=== PATIENT | male | born 1955 | race Caucasian/White ===

== ENCOUNTER 2018-01-18 10:19 | Outpatient (CLI) | payer BC, OTHER | END 2018-01-18 10:20 | disposition home or self-care (01) | LOC: LAB.R 10:19 | PROVIDERS: ATTEND Registered Nurse | DX: J02.8 Acute pharyngitis due to other specified organisms (principal) | CPT/HCPCS: 87070 ==

== ENCOUNTER 2021-01-14 08:16 | Outpatient (CLI) | payer MEDICARE, OTHER | END 2021-01-14 08:17 | disposition critical access hospital (66) | LOC: EMS 08:16 | DX: R42 Dizziness and giddiness (principal); R53.1 Weakness; R11.2 Nausea with vomiting, unspecified | CPT/HCPCS: A0425; A0427 ==

== ENCOUNTER 2021-01-14 08:48 | Emergency (ER) | payer MEDICARE, OTHER ==
[2021-01-14] MEDS ORDERED: SODIUM CHLORIDE 0.9% 1,000 ML IV STA (09:10)
[2021-01-14] MEDS ORDERED: ONDANSETRON 4 MG/2 ML VIAL IVP STA (09:10)
[2021-01-14] MEDS ORDERED: diazePAM INJ 5 MG/ML SYRINGE IVP STA (09:30)
--- NOTE | 2021-01-14 09:33 | ED Physician Documentation ---
History of Present Illness - Stated complaint Stated Complaint: DIZZINESS - Chief complaint Chief Complaint: Neuro - History obtained from History obtained from: Patient, EMS - Additonal information Additional information: Patient comes emergency department chief complaint of vertigo and nausea that started last night. Patient states he was just sitting in his chair in his office, reading, when the symptoms started. He states that his office chair rocks and he thought that perhaps he just rock too much, but the symptoms persisted. Patient denies any other focal neurologic symptoms or deficits along with the vertigo. He states that he began immediately to feel severely nauseated when the vertigo came on and vomited a number of times. He denies ever having had vertigo before. He denies any recent viral illness. No head injury. The patient states that the only other neurologic history he has his cluster headaches every couple of years. He is not currently having a headache. Patient does note that he has a sense of "white noise" in his right ear that started around the same time as the vertigo. No hearing loss. The patient also states that even though the vertigo causes him to feel off balance when he is up, if he is laying down, he feels he has good coordination in all 4 extremities. He states that moving makes the symptoms significantly worse, though he has an abiding sense of vertigo and nausea. No other complaints at this time. Review of Systems Ten Systems: 10 systems reviewed and negative Constitutional: reports: Reviewed and negative Eyes: reports: Reviewed and negative Ears: reports: Reviewed and negative Nose: reports: Reviewed and negative Throat: reports: Reviewed and negative Cardiac: reports: Reviewed and negative Respiratory: reports: Reviewed and negative GI: reports: Nausea, Vomiting : reports: Reviewed and negative Skin: reports: Reviewed and negative Musculoskeletal: reports: Reviewed and negative Neurologic: reports: Other (Vertigo) Psychiatric: reports: Reviewed and negative Endocrine: reports: Reviewed and negative Immunocompromised: reports: Reviewed and negative PD PAST MEDICAL HISTORY - Present Medications Home Medications: Ambulatory Orders Medication Instructions Recorded Confirmed Meclizine HCl [Motion Sickness] 25 mg PO Q6HR PRN #30 tablet 01/14/21 Ondansetron Odt [Zofran] 4 mg TL Q6H PRN #10 tablet 01/14/21 - Allergies Allergies/Adverse Reactions: Allergies Allergy/AdvReac Type Severity Reaction Status Date / Time No Known Drug Allergies Allergy Verified 01/14/21 08:58 PD ED PE NORMAL - Vitals Vital signs reviewed: Yes - General General: Alert and oriented X 3, Well developed/nourished, Other (Patient appears generally uncomfortable, laying curled up on his side with a vomit bag at his mouth. Is otherwise in no distress, however.) - HEENT HEENT: Atraumatic, PERRL, EOMI, Ears normal, Moist mucous membranes - Neck Neck: Supple, no meningeal sign - Cardiac Cardiac: RRR, No murmur, Strong equal pulses - Respiratory Respiratory: No respiratory distress, Clear bilaterally - Abdomen Abdomen: Soft, Non tender, Non distended - Derm Derm: Normal color, Warm and dry, No rash - Extremities Extremities: No deformity, No edema, No calf tenderness / cord - Neuro Neuro: Alert and oriented X 3, stone polisher 2-12 intact, No motor deficit, No sensory deficit, Normal speech, Other (Patient is able to turn over briskly in bed and with good coordination, but does note that this makes his sense of nausea and vertigo worse.) - Psych Psych: Normal mood, Normal affect Results - Vitals Vitals: Oxygen O2 Source Room air - EKG (time done) 0940 Rate: Rate (enter#) (67) Rhythm: NSR [place]: Normal Intervals: Normal [place] QRS: Normal Ischemia: Normal ST segments Compare to prior EKG: Old EKG unavailable Computer interpretation: Agree with computer - Labs Labs: Laboratory Tests 01/14/21 01/14/21 09:33 09:33 WBC 10.2 RBC 4.92 Hgb 15.1 Hct 45.5 MCV 92.5 MCH 30.7 MCHC 33.2 RDW 12.5 Plt Count 198 MPV 10.5 Neut # (Auto) 8.3 H Lymph # (Auto) 1.0 L Kenton # (Auto) 0.8 Eos # (Auto) 0.0 Baso # (Auto) 0.1 Absolute Nucleated RBC 0.00 Nucleated RBC % 0.0 Sodium 137 Potassium 4.0 Chloride 102 Carbon Dioxide 24 Anion Gap 11.0 BUN 18 Creatinine 1.0 Estimated GFR (MDRD) 75 L Glucose 120 H Calcium 9.7 Total Bilirubin 0.9 AST 33 ALT 30 Alkaline Phosphatase 62 Total Protein 7.4 Albumin 4.6 Globulin 2.8 Albumin/Globulin Ratio 1.6 Lipase 26 - Rads (name of study) CT head Radiology: Final report received, EMP read indepedently, See rad report (neg) PD MEDICAL DECISION MAKING - ED course Complexity details: reviewed results, re-evaluated patient, considered differential, d/w patient ED course: The patient was treated symptomatically with IV fluids, Zofran, and Valium, and worked up with laboratory studies, EKG, and head CT. Work-up was negative. Pt was feeling a little better, but still dizzy. He was able to hold down a dose of meclizine, and after this, could ambulate to the bathroom without assistance, though he did still have some vertigo. I suspected benign positional vertigo, and have discussed the potential causes, timeline, and need for follow-up. I have prescribed meclizine and zofran. We have discussed the usual indications for return. Departure - Departure Disposition: 01 Home, Self Care Clinical Impression: Benign positional vertigo Qualifiers: Laterality: unspecified laterality Qualified Code(s): H81.10 - Benign paroxysmal vertigo, unspecified ear Condition: Stable Instructions: ED BPV Vertigo Prescriptions: Meclizine HCl [Motion Sickness] 25 mg PO Q6HR PRN #30 tablet PRN Reason: Vertigo Ondansetron Odt [Zofran] 4 mg TL Q6H PRN #10 tablet PRN Reason: Nausea / Vomiting Comments: Your labs and CT scan look good, as does your EKG. Your vertigo is most consistent with a peripheral source, rather than a problem inside your brain. Peripheral vertigo will resolve on its own, but can take some time. Please take the nausea and vertigo medication as needed, and schedule an appointment as soon as possible follow-up with your primary care physician. Discharge Date/Time: 01/14/21 13:46
[2021-01-14 09:39] LABS: BASOPHILS # (AUTO) 0.1 10^3/uL (0.0-0.1); BASOPHILS % (AUTO) 0.5 %; EOSINOPHILS % (AUTO) 0.4 %; HCT - HEMATOCRIT 45.5 % (42.0-52.0); HGB - HEMOGLOBIN 15.1 g/dL (14.0-18.0); LYMPHOCYTES % (AUTO) 9.7 %; MEAN CORPUSCULAR HEMOGLOBIN 30.7 pg (27.0-31.0); MEAN CORPUSCULAR HGB CONC 33.2 g/dL (32.0-36.0); MEAN CORPUSCULAR VOLUME 92.5 fL (80.0-94.0); MEAN PLATELET VOLUME 10.5 fL (7.4-11.4); MONOCYTES # (AUTO) 0.8 10^3/uL (0.0-1.0); MONOCYTES % (AUTO) 7.4 %; NEUTROPHILS # (AUTO) 8.3 10^3/uL (1.5-6.6); NEUTROPHILS % (AUTO) 81.8 %; PLT - PLATELET COUNT 198 10^3/uL (130-450); RED BLOOD COUNT 4.92 10^6/uL (4.70-6.10); RED CELL DISTRIBUTION WIDTH 12.5 % (12.0-15.0); WHITE BLOOD COUNT 10.2 x10^3/uL (4.8-10.8)
[2021-01-14 09:52] LABS: ALBUMIN 4.6 g/dL (3.2-5.5); ALBUMIN/GLOBULIN RATIO 1.6 (1.0-2.2); BILIRUBIN,TOTAL 0.9 mg/dL (0.2-1.0); CALCIUM 9.7 mg/dL (8.5-10.3); TOTAL PROTEIN 7.4 g/dL (6.7-8.2)
--- NOTE | 2021-01-14 10:29 | CT Report ---
PROCEDURE: CT brain without contrast INDICATIONS: acute vertigo TECHNIQUE: Noncontrast 4.5 mm thick angled axial sections acquired from the foramen magnum to the vertex. For r adiation dose reduction, the following was used: automated exposure control, adjustment of mA and/or kV according to patient size. COMPARISON: None. FINDINGS: Image quality: Excellent. CSF spaces: Basal cisterns are patent. No extra-axial fluid collections. Ventricles are normal in size and shape. Brain: No midline shift. No intracranial masses or hemorrhage. Kwon-white matter interface is norm al. Skull and face: Calvarium and visualized facial bones are intact, without suspicious lesions. Sinuses: Visualized sinuses and mastoids are clear. IMPRESSION: Unremarkable CT brain. No intracranial hemorrhage or mass effect. Reviewed by: Terence Montana MD on 01/14/2021 9:28 AM [facility] Approved by: Terence Montana MD on 01/14/2021 9:28 AM [facility] Station ID: [id number]
[2021-01-14] MEDS ORDERED: MECLIZINE 12.5 MG TABLET PO STA (11:33)
[2021-01-14 13:31] VITALS: BP 124/68
== END 2021-01-14 13:46 | disposition home or self-care (01) ==
LOC: EDUNIT# → ED 08:48
DX: H81.10 Benign paroxysmal vertigo, unspecified ear (principal); R11.2 Nausea with vomiting, unspecified
CPT/HCPCS: 36415; 70450; 80053; 83690; 85025; 93005; 96374; 96375; 99284; A9270